=== PATIENT | male | born 1955 | race Caucasian/White ===

== ENCOUNTER 2021-04-14 15:00 | Observation (INO) | payer MEDICARE ==
[~2021-04-14] VITALS: Ht 182.9 cm; Wt 136.4 kg
[2021-04-14] MEDS ORDERED: METFORMIN HCL500 M1 PO (15:07)
[2021-04-14] MEDS ORDERED: OMEPRAZOLE20 M1 (15:07)
[2021-04-14] MEDS ORDERED: NEURONTIN600 MG PO (15:07)
[2021-04-14] MEDS ORDERED: ALDACTONE25 MG PO (15:08)
[2021-04-14] MEDS ORDERED: COZAAR100 MG PO (15:08)
[2021-04-14] MEDS ORDERED: FLOMAX0.4 MG (15:08)
[2021-04-14] MEDS ORDERED: GLUCOTROL ER2.5 MG PO (15:08)
[2021-04-14] MEDS ORDERED: PLAVIX75 MG PO (15:08)
[2021-04-14] MEDS ORDERED: METOPROLOL TART50 MG PO (15:09)
[2021-04-14] MEDS ORDERED: VENTOLIN HFA [SP8 GM INH (15:09)
[2021-04-14] MEDS ORDERED: ANORO ELLIPTA1 EACH INH (15:09)
[2021-04-14 15:32] LABS: BASOPHILS 0.5 % (0-2); EOSINOPHILS 0.1 % (0-7); HEMATOCRIT 42.4 % (42.0-54.0); HEMOGLOBIN 13.6 g/dL (13.5-17.5); LYMPHOCYTES 4.7 % (15-50); MCHC 32.1 g/dL (31.0-37.0); MCV 87.4 fL (80.0-100.0); MEAN PLATELET VOLUME 9.3 fL (7.4-10.4); MONOCYTES 5.8 % (2-11); NEUTROPHILS 88.9 % (40-80); PLATELET COUNT 170 10x3/uL (130-400); RBC 4.85 10x6/uL (4.20-6.10); RDW 14.3 % (11.5-14.5); WBC 13.7 10x3/uL (4.8-10.8)
[2021-04-14 15:39] LABS: APTT 26.8 SECONDS (22.8-39.4); INR 1.15 (0.85-1.17); PROTIME 13.7 SECONDS (11.6-15.0)
[2021-04-14 15:46] LABS: CALC OSMOLALITY 286 mosm/kg (275-300); CALCIUM 8.4 mg/dL (8.5-10.1); CARBON DIOXIDE 25.4 mmol/L (21.0-32.0); CHLORIDE - SERUM 106 mmol/L (98-107); CREATININE - SERUM 1.1 mg/dL (0.6-1.3); GLUCOSE 214 mg/dL (74-106); POTASSIUM - SERUM 4.6 mmol/L (3.5-5.1); SODIUM 139 mmol/L (136-145); UREA NITROGEN 22 mg/dL (7-18); eGFR NON AFRICAN AMERICAN 71 mL/min (90-120)
[2021-04-14 15:56] LABS: SARS-CoV-2 ANTIGEN NEGATIVE- SARS-COV-2 (NEGATIVE)
[2021-04-14 16:00] LABS: ALBUMIN 2.8 g/dL (3.4-5.0); ALKALINE PHOSPHATASE 46 U/L (30-120); ALT (SGPT) 35 U/L (10-68); CKMB 0.3 U/L (0.0-3.6); CREATINE KINASE 62 UL (21-232); PROTEIN - SERUM 6.4 g/dL (6.4-8.2)
[2021-04-14 16:02] LABS: AMYLASE - SERUM 28 U/L (25-115); LIPASE 68 U/L (73-393)
[2021-04-14 16:08] LABS: TROPONIN-I < 0.017 ng/mL (0.000-0.060)
--- NOTE | 2021-04-14 16:14 | NUR ---
I OFFERED PT ZOFRAN FOR NAUSEA, PT DECLINED AT THIS TIME. PT ASKED ME TO UPDATE , I NOTIFIED PT IN WAITING ROOM OF PATIENTS STATUS.
[2021-04-14 17:07] LABS: BILIRUBIN NEGATIVE (NEGATIVE); KETONE NEGATIVE mg/dL (< 1+); NITRITE NEGATIVE (NEGATIVE); SQUAMOUS EPITHELIAL 1 HPF (0-4); UROBILINOGEN NORMAL mg/dL (< 2); WHITE CELLS - URINE 11 HPF (0-1)
--- NOTE | 2021-04-14 17:14 | NUR ---
PT GAVE URINE SAMPLE, PT GOWN GOT WET SO I HAD TO CHANGE PTS GOWN. PT NOW RESTING QUIETLY.
[2021-04-15 02:00] VITALS: BP 138/69
[2021-04-15 03:00] VITALS: BP 138/72
[2021-04-15 05:35] VITALS: BP 133/66; Ht 182.9 cm; Wt 136.4 kg
--- NOTE | 2021-04-15 06:00 | NUR ---
ADMIT TO ROOM 2139 FROM ER HOLD AT 0442. PT ALERT/ORIENTED AND AMBULATORY. ADMISSION HISTORY AND ASSESSMENT COMPLETED. IVF NS @ 75ML/HR STARTED TO RFA. O2 @ 2L/NC IN PLACE. HOME MEDS REVIEWED. INSTRUCTED ON PLAN OF CARE. TELEMETRY INITIATED SR 84.
[2021-04-15 06:20] VITALS: BP 133/66
[2021-04-15 06:41] LABS: BASOPHILS 0.1 % (0-2); EOSINOPHILS 0 % (0-7); HEMATOCRIT 42.1 % (42.0-54.0); HEMOGLOBIN 13.5 g/dL (13.5-17.5); LYMPHOCYTES 5.8 % (15-50); MCH 28.4 pg (26.0-34.0); MCHC 32.2 g/dL (31.0-37.0); MCV 88.2 fL (80.0-100.0); MEAN PLATELET VOLUME 9.2 fL (7.4-10.4); MONOCYTES 5.8 % (2-11); NEUTROPHILS 88.3 % (40-80); PLATELET COUNT 149 10x3/uL (130-400); RBC 4.77 10x6/uL (4.20-6.10); RDW 14.3 % (11.5-14.5)
[2021-04-15 06:46] LABS: WBC 9.1 10x3/uL (4.8-10.8)
[2021-04-15 06:54] LABS: ALBUMIN 2.6 g/dL (3.4-5.0); ANION GAP 12.4 mmol/L (8-16); BILIRUBIN - TOTAL 0.43 mg/dL (0.2-1.3); CALCIUM 8.2 mg/dL (8.5-10.1); CARBON DIOXIDE 24.8 mmol/L (21.0-32.0); CREATININE - SERUM 1.1 mg/dL (0.6-1.3); MAGNESIUM - SERUM 1.9 mg/dL (1.8-2.4); POTASSIUM - SERUM 4.2 mmol/L (3.5-5.1); PROTEIN - SERUM 6.2 g/dL (6.4-8.2)
[2021-04-15 07:48] VITALS: BP 115/66
[2021-04-15 10:50] VITALS: BP 123/69
--- NOTE | 2021-04-15 16:43 | NUR ---
REQUESTING DISCHARGE PAPERWORK. CALL [facility] REQUESTING FOR DISCHARGE ORDER. DISCHARGE DENIED. INFORM PATIENT ONLY WAY TO LEAVE IS AMA. EXPLAIN INSURANCE WILL NOT PAY IF LEAVING AMA. PATIENT LAUGHS SAYING, "YEA THEY WILL."
--- NOTE | 2021-04-15 17:24 | NUR ---
ALERT AND ORIENTED X4. STANDING AT DOOR REQUESTING TO BE DISMISSED. DC LT FA IV TIP INTACT. UNABLE TO SIGN AMA PAPERWORK DUE TO COVID ISOLATION. REMAINS FREE FROM INJURY.
--- NOTE | 2021-04-15 18:05 | MORECARE ---
CASE MANAGEMENT DISCHARGE SUMMARY PATIENT: EVELINA ESPINAL UNIT: [id number] ADM DATE: 04/14/21 AGE: 66 : 55 SEX: M ROOM/BED: D.2139 AUTHOR: NICO,DOC PHYSICIAN: REFERRING PHYSICIAN: STEPHANY ANTON MD DATE OF SERVICE: 04/15/21 Case Management Discharge Planning Summary DCP REVIEW SUMMARY ANTICIPATED D/C DATE: EXPECTED LOS : CASE STATUS: DCP Complete INITIAL REVIEW: 04/14/2021 INITIAL REVIEWER: Tessa Churchill FINAL DISCHARGE DISPOSITION: : FINAL REVIEWER: FINAL REVIEW DATE: DCP [employer] Questions [employer]swers QUESTION: ANSWER : PATIENT: EVELINA ESPINAL ENCOUNTER: [id number] MEDICAL RECORD#: [id number] ADMISSION DATE: 04/14/2021 DISCHARGE DATE: 04/15/2021 ATTENDING MD: SIMONE: AGE: 66 MARITAL STATUS: M DC PLAN ID: [id number] FACILITY: [facility] PRINTED ON: 04/15/21 18:05 CT All edits/amendments must be made on the electronic document DICTATION DATE: 04/15/211804 WAVE GUIDE ASSEMBLER: SUSANNAH 04/15/211804 RPT#: [id number] DC DATE:04/15/21 STATUS: DIS IN [facility] [address] [place] [address] END OF REPORT
== END 2021-04-15 17:28 | disposition left against medical advice (07) ==
LOC: D.ER 15:00 → D.EDHOLD 17:18 → OBSVTIME 17:18 → D.EDHOLD 17:18 → D.M2 04-15 03:40
PROVIDERS: Family Medicine; ADMIT Family Medicine; ATTEND Family Medicine
DX: J18.9 Pneumonia, unspecified organism (principal); R10.9 Unspecified abdominal pain; Z20.822 Contact with and (suspected) exposure to COVID-19; N39.0 Urinary tract infection, site not specified; E11.65 Type 2 diabetes mellitus with hyperglycemia; I11.0 Hypertensive heart disease with heart failure; I50.9 Heart failure, unspecified; E66.01 Morbid (severe) obesity due to excess calories; K21.9 Gastro-esophageal reflux disease without esophagitis; J44.9 Chronic obstructive pulmonary disease, unspecified; I48.91 Unspecified atrial fibrillation; K52.9 Noninfective gastroenteritis and colitis, unspecified; G47.36 Sleep related hypoventilation in conditions classified elsewhere